=== PATIENT | male | born 1990 | race Hispanic/Latino ===

== ENCOUNTER 2017-09-22 06:57 | Day surgery (SDC) | payer OTHER ==
[~2017-09-22] VITALS: Ht 190.5 cm; Wt 138.3 kg
[~2017-09-22 06:57] MED LIST: ALLERGY10 MG PO; AMITRIPTYLINE H25 MG PO; FLOVENT DISKUS50 MCG INH; HYDROXYZINE HCL50 MG PO; NAPROXEN500 MG PO; NORCO 7.5-3251 EACH PO; PRAZOSIN HCL1 MG PO
--- NOTE | 2017-09-22 09:51 | NUR ---
09/22/17 0951 Martha Cain 9415-PATIENT ARRIVED TO PACU ON 6L MASK O2 SAT 100% PATIENT REACTIVE TO VERBAL STIMULI EYES CLOSED. RR EVEN. SR. RIGHT LEG INCISION CDI ICE APPLIED. PALPABLE PEDAL PULSE GOOD CAP REFILL AND WARMTH. GUARDS AT BEDSIDE.
--- NOTE | 2017-09-22 10:33 | NUR ---
PT ARRIVES TO DS TREATMENT ROOM AWAKE AND ALERT. PT DENIES NAUSEA AND HAS MINIMAL PAIN /10. PT PROVIDED ICED WATER AND CRACKERS ON ARRIVAL. PT STATES "I AM STARVING!" ON ARRIVAL. CHOCOLATE PUDDING REQUESTED. CALL LIGHT WITH [employer] OFFICER. GLASSES ON PT ON ARRIVAL.
[2017-09-22] MEDS ORDERED: ULTRAM50 MG PO (10:54)
--- NOTE | 2017-09-22 11:21 | NUR ---
LE 1110: IN TO CHECK ON PT. PT DOING WELL. PT REQUESTS ANOTHER PUDDING, TOLERATING PO WELL.
--- NOTE | 2017-09-22 11:39 | NUR ---
DC CRITERIA MET. IN PT RM WITH DC INSTUCTIONS AND PT STATES WITH MOVEMENT OF USING BR AND GETTING DRESSED, HIS PAIN IS 7/10 AND WOULD LIKE SOME PAIN MEDICATION. MEDICATION ADMINISTERED. PT TO WAIT 15-20 MINUTES BEFORE DC. [employer] TRANSP[employer] GUARDS HELPED PT TO BR AND STATED HE VOIDED QS WITH NO PROBLEMS. DC INSTRUCTIONS GIVEN IN PRESENCE OF PT AND [employer] TRANSPORT TEAM. PT VERBALIZES AN UNDERSTANDING OF DC INSTRUCTIONS.
--- NOTE | 2017-09-22 13:09 | NUR ---
PT IN BED, ALERT AND ORIENTED. GUARDS STATIONED WITH HIM. PT IS PLEASANT, BUT DOES SEEM A LITTLE ANXIOUS. TRIED TO ENCOURAGED HIM, PT DECLINED PRAYER AT THIS TIME. WILL FOLLOW NEEDED
--- NOTE | 2017-09-27 07:19 | OR ---
[facility] [address], [place] [address] Signed DATE OF OPERATION: 09/22/2017 SURGEON: Marcelino Garcia MD PREOPERATIVE DIAGNOSIS: Torn lateral meniscus, right knee. POSTOPERATIVE DIAGNOSIS: Torn lateral meniscus, right knee. PROCEDURE: Right knee arthroscopy with partial lateral meniscectomy. ANESTHESIA: General. SPECIMENS AND COMPLICATIONS: There were no specimens or complications. TOURNIQUET TIME: About 30 minutes. WHAT WAS DONE: The patient was taken to the operating room. After anesthesia was induced and airway secured, the patient was positioned, prepped and draped in a routine sterile fashion. The leg was exsanguinated with an Esmarch bandage. Pneumatic tourniquet was inflated to 300 mmHg pressure. The outflow cannula was placed superomedially, the arthroscope anterolaterally, and an anteromedial portal was created using transillumination and localization with a spinal needle. A probe was introduced. The suprapatellar pouch was unremarkable as was the patellofemoral joint. The medial recess and the medial compartment were pristine. The patient had a very thick dense septum mucosa, which was difficult to penetrate. We therefore introduced a VAPR electrosurgical device and removed a fair portion of the septal mucosa. This enabled us to visualize the notch, which had an intact ACL and PCL. The lateral compartment showed no degenerative arthritic changes, but there was a flap tear of the posterior aspect of the lateral meniscus. We withdrew the probe and introduced a basket forceps. We used the basket forceps to complete the meniscal tear and a large shard was delivered out of the knee. We then used the motorized shaver to debride the edges of the meniscectomy. The knee was copiously irrigated and drained. The portals were closed and sterile dressings applied. Sterile dressing was applied. The patient was awakened and taken to the Electronically Signed By: MARCELINO GARCIA MD 09/27/17 0719 PATIENT NAME: MELISSA GOFF OPERATIVE REPORT DATE OF : [birth year] REPORT #: [id number] PHYSICIAN: MARCELINO GARCIA MD PCP: GELACIO FERREIRA MD REPORT IS CONFIDENTIAL AND NOT TO BE RELEASED WITHOUT AUTHORIZATION [facility] [address] [place] [id number] Signed recovery room where he arrived in stable condition. Counts were correct and antibiotic protocols were followed. Marcelino Garcia MD WFB/MODL /[id number] Copies: ~ Electronically Signed By: MARCELINO GARCIA MD 09/27/17 0719 PATIENT NAME: MELISSA GOFF OPERATIVE REPORT DATE OF : [birth year] REPORT #: [id number] PHYSICIAN: MARCELINO GARCIA MD PCP: GELACIO FERREIRA MD REPORT IS CONFIDENTIAL AND NOT TO BE RELEASED WITHOUT AUTHORIZATION
== END 2017-09-22 18:00 | disposition home or self-care (01) ==
LOC: DS 06:57
PROVIDERS: Orthopaedic Surgery
PROC: 0SBC4ZZ Excision of Right Knee Joint, Percutaneous Endoscopic Approach (ICD-10-PCS; principal; 2017-09-22 08:30)
DX: S83.281A Other tear of lateral meniscus, current injury, right knee, initial encounter (principal); X58.XXXA Exposure to other specified factors, initial encounter; Z79.899 Other long term (current) drug therapy; Z79.52 Long term (current) use of systemic steroids; Z87.891 Personal history of nicotine dependence
CPT/HCPCS: 01400; J0690; J1885; J2250; J2405; J2704; J2765; J3010; J7120

== ENCOUNTER 2018-05-11 05:50 | Day surgery (SDC) | payer OTHER ==
[~2018-05-11] VITALS: Ht 190.5 cm; Wt 133.8 kg
[~2018-05-11 05:50] MED LIST changes: +ULTRAM50 MG PO
[2018-05-11] MEDS ORDERED: VISINE15 ML (06:03)
[2018-05-11] MEDS ORDERED: ALLERGY EYE DROP5 ML (06:03)
--- NOTE | 2018-05-11 08:32 | NUR ---
05/11/18 0832 Gaby Morales 0813- PT ARRIVES TO PACU NONAROUSABLE TO NOXIOUS STIMULI. PT HAS AN OPA IN PLACE AND IS ON 6L VIA MASK. OXYGEN SAT 100% ON THIS. RESP EVEN AND UNLABORED. GUARDS X2 AT THE BEDSIDE. 0819- PT MORE AROUSABLE TO STIMULI AND TRYING TO TAKE OPA OUT. PT INSTRUCTED TO OPEN HIS MOUTH. PT IS ABLE TO PERFORM THIS TASK AND OPA REMOVED. RESP EVEN AND UNLABORED. PT REMAINS ON 6L VIA MASK. OXYGEN SAT 100% ON THIS.
--- NOTE | 2018-05-11 08:49 | NUR ---
PT ARRIVES TO DS RM 10 AWAKE, BUT DROWSY. PT AROUSED BY VERBAL STIMULI AND FOLLOWS COMMANDS APPROPRIATELY. RESP EVEN AND UNLABORED. PT DENIES ANY N/V. PT STATES PAIN IN RIGHT KNEE 7-11/25. PT PROVIDED EYE GLASSES. SCD'S IN PLACE. CALL LIGHT WITH [employer] GUARDS. PT PROVIDED ICED WATER AND CRACKERS.
[2018-05-11] MEDS ORDERED: ULTRAM50 MG PO (09:13)
--- NOTE | 2018-05-11 09:15 | NUR ---
PT TOLERATES WATER AND CRACKERS WELL. PT PROVIDED PUDDING PER REQUEST. PT MEDICATED FOR PAIN, SEE EMAR. DC CRITERIA EXPLAINED TO PT, PT NODS HEAD AND AGREES.
--- NOTE | 2018-05-11 09:25 | NUR ---
[facility] GUARDS NOTIFY RN OF PT URGE TO VOID. IV SALINE LOCKED AND SCD'S REVOMED. GUARDS ASSIST PT TO BATHROOM. PT ABLE TO VOID QS WITH NO PROBLEMS.
--- NOTE | 2018-05-11 09:51 | NUR ---
0940: DC INSTRUCTIONS GIVEN IN PRESENCE OF PT AND [facility] GUARDS. [facility] GUARDS ASSIST PT IN GETTING DRESSED. PT DC'S FROM DS RM 10 VIA WC TO [employer].
--- NOTE | 2018-05-11 09:57 | NUR ---
VERBAL REPORT CALLED TO NURSE POWERS AT [facility].
--- NOTE | 2018-05-16 07:09 | OR ---
[facility] [address] [place], [place] [address] Signed DATE OF OPERATION: 05/11/2018 SURGEON: Marcelino Garcia MD PREOPERATIVE DIAGNOSIS: Recurrent lateral meniscal tear, right knee. POSTOPERATIVE DIAGNOSIS: Recurrent lateral meniscal tear, right knee. PROCEDURE: Right lateral meniscectomy. SPECIMENS AND COMPLICATIONS: There were no specimens or complications. TOURNIQUET TIME: About 35 minutes. WHAT WAS DONE: The patient was taken to the operating room. After anesthesia was induced and airway secured, the right lower extremity was positioned, prepped and draped in the routine sterile fashion. The leg was exsanguinated with an Esmarch bandage. Pneumatic tourniquet was inflated to 300 mmHg pressure. The outflow cannula was placed superomedially and there was no joint fluid recovered. The arthroscope was then placed through the standard anterolateral portal and an anteromedial portal was created using transillumination and localization with a spinal needle. Diagnostic arthroscopy then revealed an unremarkable suprapatellar pouch and patellofemoral joint. The medial recess, medial compartment including the medial femoral condyle, medial tibial plateau, and medial meniscus were completely unremarkable. The intercondylar notch revealed an intact ACL. The lateral compartment revealed minimal chondral damage over the weightbearing portion medial femoral condyle. There was a horizontal tear in the midportion of the lateral meniscus. We then introduced a basket forceps through the anteromedial portal and completed the meniscal tear. We then smooth and contour the edges with a motorized shaver. The knee was copiously irrigated and drained and the portals were closed. Sterile dressings were applied and the patient was awakened, taken to the recovery room where he arrived in stable condition. Counts were correct and antibiotic protocols were followed. Electronically Signed By: MARCELINO GARCIA MD 05/16/18 0709 PATIENT NAME: MELISSA GOFF OPERATIVE REPORT DATE OF : [birth year] REPORT #: [id number] PHYSICIAN: MARCELINO GARCIA MD PCP: DRAGAN VIGIL REPORT IS CONFIDENTIAL AND NOT TO BE RELEASED WITHOUT AUTHORIZATION [address] [address] Signed Marcelino Garcia MD WFB/MODL /[id number] Copies: ~ Electronically Signed By: MARCELINO GARCIA MD 05/16/18 0709 PATIENT NAME: MELISSA GOFF OPERATIVE REPORT DATE OF : [birth year] REPORT #: [id number] PHYSICIAN: MARCELINO GARCIA MD PCP: DRAGAN VIGIL VET ASSISTANT REPORT IS CONFIDENTIAL AND NOT TO BE RELEASED WITHOUT AUTHORIZATION
== END 2018-05-11 09:45 | disposition home or self-care (01) ==
LOC: DS 05:50
PROVIDERS: Orthopaedic Surgery
PROC: 0SBC4ZZ Excision of Right Knee Joint, Percutaneous Endoscopic Approach (ICD-10-PCS; principal; 2018-05-11 06:45)
DX: S83.281A Other tear of lateral meniscus, current injury, right knee, initial encounter (principal); F41.9 Anxiety disorder, unspecified; Z87.891 Personal history of nicotine dependence; Z79.899 Other long term (current) drug therapy; Z86.59 Personal history of other mental and behavioral disorders; X58.XXXA Exposure to other specified factors, initial encounter
CPT/HCPCS: 01400; J0690; J1100; J1885; J2250; J2405; J2704; J3010; J3301; J7120

== ENCOUNTER 2020-01-27 14:56 | Emergency (ER) | payer OTHER ==
[~2020-01-27] VITALS: Ht 190.5 cm; Wt 133.8 kg
[~2020-01-27 14:56] MED LIST changes: +ALLERGY EYE DROP5 ML; +VISINE15 ML
[2020-01-27] MEDS ORDERED: LEVOFLOXACIN750 MG PO (18:26)
[2020-01-27] MEDS ORDERED: MELATONIN1 MG PO (18:41)
== END 2020-01-27 18:55 | disposition home or self-care (01) ==
LOC: ED 14:56
DX: U07.1 COVID-19 (principal); J12.89 Other viral pneumonia; R55 Syncope and collapse; S00.03XA Contusion of scalp, initial encounter; Z91.030 Bee allergy status; Z79.899 Other long term (current) drug therapy
CPT/HCPCS: 70450; 71045; 80053; 85025; 96360; 99284-25; J7030